=== PATIENT | male | born 1940 | race Caucasian/White ===

== ENCOUNTER 2019-05-29 10:41 | Emergency (ER) | payer OTHER ==
[2019-05-29] MEDS ORDERED: traMADol HCl 50 MG TAB ONE (11:58)
[2019-05-29] MEDS ORDERED: Ondansetron PF 4 MG/2 ML Vial ONE (11:58)
[2019-05-29] MEDS ORDERED: Ondansetron ODT 4 MG TAB ONE (12:01)
--- NOTE | 2019-05-29 12:37 | RAD ---
RIGHT SHOULDER 2 VIEWS: HISTORY: Fall with injury and pain. FINDINGS: There are degenerative changes seen at the glenohumeral joint. Degenerative changes at the AC joint. I cannot exclude fracture of the humeral head on this exam. Recommend further evaluation with CT rig ht shoulder. IMPRESSION: Prominent degenerative changes at the right shoulder. Fracture of the humeral head cannot be exclude d. Recommend further evaluation with CT. POS: OFF
--- NOTE | 2019-05-29 13:09 | CT ---
EXAM: RIGHT SHOULDER CT WITHOUT CONTRAST: 05/29/19 COMPARISON: None. CORRELATION: Right shoulder radiograph 05/29/19. HISTORY: Degenerative change. Fall. Evaluate for fracture. FINDINGS: There is evidence of soft tissue swelling and anterior intramuscular edema/hematoma. There is calcification in the visualized right pleura. Correlate for asbestos exposure or exposure to other substances. Visualized right ribs are unremarkable. There is degenerative change in the acromioclavicular and sternoclavicular joint space. Clavicle is i ntact. Scaphoid bone is intact. Based on images provided, there is moderate degenerative change involving the glenohumeral joint spac e with irregularity of the glenoid along with osteophyte formation on the superior and inferior aspec t of the glenoid as well as the inferior medial aspect of the humeral head. There is irregularity and sclerosis involving the greater tuberosity likely due to rotator cuff tendi nopathy. Possible Hill-Sachs deformity due to remote dislocation. On coronal image #54, there is a vertically oriented lucency involving the anterior aspect of the hum eral head. There appears to be a possible deformity and disruption of the cortical margin of the infe rior medial aspect of the right humeral neck (image 29, series 400). The possibility of a nondisplace d fracture is raised. MRI to assess for edema may be beneficial. IMPRESSION: 1. Possible nondisplaced fracture involving the anterior and medial humerus/humeral neck. Consi betty MRI for further evaluation. 2. 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 3. Pleural based calcifications. Correlate for exposure to a noxious substances. 4. Hematoma involving the anterior musculature at the level of the shoulder and proximal forearm . POS: [facility]
== END 2019-05-29 12:52 ==
LOC: NAV ERS 10:41
DX: S42.201A Unspecified fracture of upper end of right humerus, initial encounter for closed fracture (principal); M70.31 Other bursitis of elbow, right elbow; E11.9 Type 2 diabetes mellitus without complications; I10 Essential (primary) hypertension; Z79.899 Other long term (current) drug therapy; Z79.4 Long term (current) use of insulin; W18.30XA Fall on same level, unspecified, initial encounter
CPT/HCPCS: J2405; Q0162

== ENCOUNTER 2022-12-11 03:09 | Emergency (ER) | payer OTHER ==
[2022-12-11 03:34] LABS: #Basophils 0.1 thou/uL (0.0-0.2); #Eosinphils 0.1 thou/uL (0.0-0.7); #Lymphocytes 1.1 thou/uL (1.20-3.40); #Monocytes 0.7 thou/uL (0.11-0.59); #Neutrophils 6.5 thou/uL (1.40-6.50); %Basophils 0.7 % (0.0-1.0); %Eosinophils 1.7 % (0.0-10.0); %Lymphocytes 12.5 % (21.0-51.0); %Monocytes 8.3 % (0.0-10.0); %Neutrophils 76.9 % (42.0-75.0); Hemoglobin 11.9 g/dL (14.0-18.0); Mean Corpuscular Hemoglobin 29.3 pg (27.0-31.0); Mean Corpuscular Volume 91.6 fl (78.0-98.0); Mean Platelet Volume 8.3 fL (7.4-10.4); Platelet Count 195 10x3/uL (130-400); RBC Distribution Width 13.7 % (11.5-14.5); Red Blood Cell (RBC) Count 4.08 mill/uL (4.70-6.10); White Blood Cell (WBC) Count 8.4 10x3/uL (4.8-10.8)
[2022-12-11 03:47] LABS: INR-International Normal Ratio 1.1; Prothrombin Time 14.2 sec (12.0-14.7)
[2022-12-11 03:53] LABS: ALT (SGPT) 13 U/L (8-55); AST (SGOT) 14 U/L (5-34); Albumin 3.7 g/dL (3.4-4.8); Alkaline Phosphatase 77 U/L (40-110); Anion Gap 22 mmol/L (10-20); BUN (Urea Nitrogen) 23 mg/dL (8.4-25.7); Bilirubin, Total 0.3 mg/dL (0.2-1.2); Calc. Creatinine Clearance 0 mL/min (70-130); Calcium 8.3 mg/dL (7.8-10.44); Carbon Dioxide 24 mmol/L (23-31); Chloride 97 mmol/L (98-107); Estimated GFR 78; Glucose 128 mg/dL (83-110); Potassium 3.9 mmol/L (3.5-5.1); Protein, Total 6.7 g/dL (5.8-8.1); Sodium 139 mmol/L (136-145)
[2022-12-11 04:15] LABS: CKMB 1.6 ng/mL (0-6.6)
[2022-12-11] MEDS ORDERED: Sodium Chloride 0.9% 1,000 ML ONE (05:47)
[2022-12-11 08:19] LABS: Bacteria/HPF 1+ HPF (None Seen); Bilirubin Negative (Negative); Blood, Urine Negative (Negative); Clarity Slightly Cloudy (Clear); Glucose, Urine (Dipstick) 100 mg/dL (Negative); Ketone, Urine Trace mg/dL (Negative); Leukocyte Large (Negative); Nitrite Negative (Negative); Protein, Urine (Dipstick) Negative (Neg-Trace); RBC/HPF 0-3 HPF (0-3); Specific Gravity, Urine 1.015 (1.005-1.030); WBC/HPF Greater than 50 HPF (0-3)
[2022-12-11 08:26] LABS: CKMB 1.5 ng/mL (0-6.6)
[2022-12-11] MEDS ORDERED: Aspirin 325 MG TAB ONE (08:47)
[2022-12-11] MEDS ORDERED: Iopamidol 370 76% 100 ML VIAL ONE (09:00)
[2022-12-11 09:28] LABS: SARS-CoV-2 NAA Rapid Test Not Detected (NotDetected)
[2022-12-11 13:02] LABS: Lactic Acid 3.2 mmol/L (0.5-2.2)
[2022-12-11 13:29] LABS: CKMB 2.2 ng/mL (0-6.6)
== END 2022-12-11 15:07 | disposition short-term general hospital (02) ==
LOC: NAV ERS 03:09
DX: N39.0 Urinary tract infection, site not specified (principal); R53.1 Weakness; I95.9 Hypotension, unspecified; E11.65 Type 2 diabetes mellitus with hyperglycemia; R77.8 Other specified abnormalities of plasma proteins; I25.10 Atherosclerotic heart disease of native coronary artery without angina pectoris; E78.5 Hyperlipidemia, unspecified; Z20.822 Contact with and (suspected) exposure to COVID-19; Z79.4 Long term (current) use of insulin
CPT/HCPCS: 36415; 71045; 71275; 80053; 81003; 81015; 82274; 82553; 83605; 83880; 84484; 85025; 85379; 85610; 85730; 87040; 93005; 94760; 96361; 96365; J1956; J7050; Q9967; U0002